=== PATIENT | male | born 1945 | race Caucasian/White ===

== ENCOUNTER → 2016-12-06 | Outpatient (CLI) | payer MEDICARE, OTHER ==
--- NOTE | 2016-12-06 08:11 | CT ---
EXAMINATION TYPE: CT brain wo con DATE OF EXAM: 12/06/2016 COMPARISON: NONE INDICATION: Dizziness DLP: 1141 mGycm, Automated exposure control for dose reduction was used. CONTRAST: None CT of the brain is performed utilizing 3 mm thick sections through the posterior fossa and 3 mm thick sections through the remaining calvarium. Study is performed within 24 hours of arrival to the hosp ital. No abnormal hyperdensity is present to suggest an acute intracranial hemorrhage. No mass lesion is evident. No acute infarcts are evident. Ventricles and sulci are appropriate for the patient age. There is a retention cyst within the right maxillary sinus. Small retention cyst or polyp is within t he left maxillary sinus. Small amount of mucosal thickening is through inferior right frontal and ant erior right ethmoid air cells. Remaining paranasal sinuses are clear. Mastoid air cells are normal. IMPRESSIONS: 1. No acute intracranial process.
--- NOTE | 2016-12-06 09:15 | US ---
EXAMINATION TYPE: US carotid duplex BILAT DATE OF EXAM: 12/06/2016 COMPARISON: NONE CLINICAL HISTORY: R55 syncope R42 dizziness. vertigo, no HTN EXAM MEASUREMENTS: RIGHT: Peak Systolic Velocity (PSV) cm/sec ----- Right CCA: 77.8 ----- Right ICA: 87.7 ----- Right ECA: 99.8 ICA/CCA ratio: 1.1 RIGHT: End Diastole cm/sec ----- Right CCA: 18.3 ----- Right ICA: 26.0 ----- Right ECA: 9.5 LEFT: Peak Systolic Velocity (PSV) cm/sec ----- Left CCA: 88.8 ----- Left ICA: 97.0 ----- Left ECA: 107.4 ICA/CCA ratio: 1.1 LEFT: End Diastole cm/sec ----- Left CCA: 21.6 ----- Left ICA: 29.7 ----- Left ECA: 11.5 VERTEBRALS (direction of flow): Right Vertebral: Antegrade Left Vertebral: Antegrade Rhythm: Normal No elevated velocities or significant stenosis. Plaque seen in bilateral posterior bulbs. Left CCA wa ll thickening. IMPRESSION: Minimal may scale plaquing of the bilateral carotid bulbs with no hemodynamically signi ficant stenosis within either carotid system.
--- NOTE | 2016-12-07 21:41 | ECHOF ---
Referral Reason: MEASUREMENTS -------- HEIGHT: 170.2 cm WEIGHT: 122.5 kg BP: 165/83 RVIDd: 2.8 cm (< 3.3) IVSd: 0.9 cm (0.6 - 1.1) LVIDd: 5.5 cm (3.9 - 5.3) LVPWd: 1.1 cm (0.6 - 1.1) IVSs: 1.2 cm LVIDs: 3.6 cm LVPWs: 1.5 cm LAESV Index (A-L): 17.84 ml/m Ao Diam: 3.6 cm (2.0 - 3.7) AV Cusp: 1.5 cm (1.5 - 2.6) LA Diam: 4.2 cm (2.7 - 3.8) MV E Vladimir: 0.74 m/s MV DecT: 387 ms MV A Vladimir: 0.89 m/s MV E/A Ratio: 0.83 RAP: 5.00 mmHg RVSP: 10.74 mmHg FINDINGS -------- Sinus rhythm. This was a technically difficult study with suboptimal views. The left ventricular size is normal. Left ventricular wall thickness is normal. Overall left ventricular systolic function is normal with, an EF between 55 - 60 %. The right ventricle is normal in size and function. Normal LA size by volume 22+/-6 ml/m2. The right atrium is normal in size. Aortic valve is trileaflet and is mildly thickened. There is no evidence of aortic regurgitation. There is no evidence of aortic stenosis. The mitral valve leaflets are mildly thickened. There is trace mitral regurgitation. Trace tricuspid regurgitation present. Right ventricular systolic pressure is normal at < 35 mmHg. There is no evidence of pulmonary hypertension. The pulmonic valve was not well visualized. The aortic root size is normal. Normal inferior vena cava with normal inspiratory collapse consistent with estimated right atrial pressure of 5 mmHg. The pericardium is normal. There is no pericardial effusion. CONCLUSIONS -------- 1. Sinus rhythm. 2. Right ventricular systolic pressure is normal at < 35 mmHg. 3. There is no evidence of pulmonary hypertension. 4. The pulmonic valve was not well visualized. 5. The aortic root size is normal. 6. There is no pericardial effusion. 7. This was a technically difficult study with suboptimal views. 8. The left ventricular size is normal. 9. Overall left ventricular systolic function is normal with, an EF between 55 - 60 %. 10. Normal LA size by volume 22+/-6 ml/m2. 11. Aortic valve is trileaflet and is mildly thickened. 12. The mitral valve leaflets are mildly thickened. 13. There is trace mitral regurgitation. 14. Trace tricuspid regurgitation present. BOAT GARNISHER: Jeffrey Guidry RDCS
== END | disposition home or self-care (01) ==
LOC: RADCTMAIN 07:43
PROVIDERS: ATTEND Family Medicine
DX: I05.8 Other rheumatic mitral valve diseases (principal); I35.8 Other nonrheumatic aortic valve disorders; R42 Dizziness and giddiness
CPT/HCPCS: 70450; 93306; 93880

== ENCOUNTER → 2017-09-13 | Day surgery (SDC) | payer MEDICARE, OTHER ==
[2017-09-10 11:24] VITALS: BMI 39.1
[~2017-09-13] MED LIST: LACTATED RINGERS 1,000 ML IV SCH; PROPOFOL 10 MG/ML 20 ML VIAL IV ONE; fentaNYL (PF) 50 MCG/ML 2 ML AMP ONE
[2017-09-13 07:09] VITALS: TEMP 98.6
--- NOTE | 2017-09-13 07:41 | P.GSHP ---
History of Present Illness H&P Date: 09/13/17 Chief Complaint: Colon cancer screening Patient here today for colonoscopy. Last colonoscopy 4 years ago. Personal history of polyps. 2 first-degree relatives with colon cancer. no bowel related complaints. Past Medical History Past Medical History: Hyperlipidemia, Osteoarthritis (OA) Additional Past Medical History / Comment(s): occ vertigo History of Any Multi-Drug Resistant Organisms: None Reported Past Surgical History: Cholecystectomy, Orthopedic Surgery Additional Past Surgical History / Comment(s): arthroscopy rt knee Past Anesthesia/Blood Transfusion Reactions: No Reported Reaction Smoking Status: Former smoker - Past Family History Sister(s) Family Medical History: Cancer Additional Family Medical History / Comment(s): colon Brother(s) Family Medical History: Cancer Medications and Allergies Home Medications Medication Instructions Recorded Confirmed Type Aspirin [Adult Low Dose Aspirin EC] 81 mg PO DAILY 09/10/17 09/13/17 History Atorvastatin [Lipitor] 20 mg PO HS 09/10/17 09/13/17 History Calcium(Dose Unknown) 2 tab PO DAILY 09/10/17 09/13/17 History Cholecalciferol [Vitamin D3] 1,000 unit PO DAILY 09/10/17 09/13/17 History Citracel Tab 2 tab PO BID 09/10/17 09/13/17 History Loratadine-Pseudoeph 10-240 mg 1 each PO DAILY 09/10/17 09/13/17 History [Claritin-D 24 Hr] Multivitamins, Thera [Multivitamin 1 tab PO DAILY 09/10/17 09/13/17 History (formulary)] Stool Softner 1 tab PO DAILY PRN 09/10/17 09/13/17 History Vits A,C,E/Lutein/Minerals 1 each PO BID 09/10/17 09/13/17 History [Ocuvite with Lutein Tablet] Allergies Allergy/AdvReac Type Severity Reaction Status Date / Time No Known Allergies Allergy Verified 09/10/17 11:14 Surgical - Exam Vital Signs Temp Pulse Resp BP Pulse Ox 98.6 F 96 20 182/99 96 09/13/17 07:07 09/13/17 07:07 09/13/17 07:07 09/13/17 07:07 09/13/17 07:07 Physical exam: General: Well-developed, well-nourished HEENT: Normocephalic, sclerae nonicteric Abdomen: Nontender, nondistended Extremities: No edema Neuro: Alert and oriented Assessment and Plan (1) Colon cancer screening Narrative/Plan: Will proceed with colonoscopy at this time Current Visit: Yes Status: Acute Code(s): Z12.11 - ENCOUNTER FOR SCREENING FOR MALIGNANT NEOPLASM OF COLON SNOMED Code(s): 728297882
--- NOTE | 2017-09-13 07:59 | P.PCN ---
Date of Procedure: 09/13/17 Procedure(s) Performed: PREOPERATIVE DIAGNOSIS: Screening POSTOPERATIVE DIAGNOSIS: Sigmoid colon polyp, mild diverticulosis PROCEDURE: Colonoscopy with snare polypectomy ANESTHESIA: MAC SURGEON: Max Aceves M.D. SPECIMENS: Sigmoid polyp ENDOSCOPIC PROCEDURE: The patient was placed on the endoscopy table in the left decubitus position. The Olympus colonoscope was inserted into the anus and passed under direct visualization to the base of the cecum. The appendiceal orifice was visualized. From that point the scope was slowly withdrawn inspecting all surfaces carefully. There were no neoplastic inflammatory or polypoid lesions throughout the cecum, ascending, transverse, and descending colon. In the sigmoid a small polyp was removed using the snare with cautery technique. There was mild diverticulosis in the left colon. Digital rectal examination was normal. The patient was taken to the recovery room in stable condition per anesthesia guidelines. RECOMMENDATIONS: Await biopsy results. Recommend follow-up colonoscopy 5 years.
[2017-09-13 08:09] VITALS: RESP 18
[2017-09-13 08:25] VITALS: BP 148/82; PULSE 72
== END | disposition home or self-care (01) ==
LOC: ORWHC2ENDO 06:41
PROVIDERS: ATTEND Surgery
DX: Z12.11 Encounter for screening for malignant neoplasm of colon (principal); D12.5 Benign neoplasm of sigmoid colon; K57.30 Diverticulosis of large intestine without perforation or abscess without bleeding; M19.90 Unspecified osteoarthritis, unspecified site; E78.5 Hyperlipidemia, unspecified; Z86.010 Personal history of colon polyps; Z80.0 Family history of malignant neoplasm of digestive organs; Z79.82 Long term (current) use of aspirin; Z79.899 Other long term (current) drug therapy; Z87.891 Personal history of nicotine dependence
CPT/HCPCS: 88305; 45385; J3010; J2704

== ENCOUNTER 2023-11-05 02:19 | Emergency (ER) | payer MEDICARE, OTHER ==
[2023-11-05] MEDS ORDERED: SODIUM CHLORIDE 0.9% 1,000 ML BAG ONE (04:00)
== END 2023-11-05 05:50 | disposition home or self-care (01) ==
LOC: EC 02:19
CPT/HCPCS: 51798; 96360; 99283

== ENCOUNTER 2023-11-13 10:13 | Emergency (ER) | payer MEDICARE, OTHER ==
[2023-11-13 10:20] VITALS: TEMP 98.3
--- NOTE | 2023-11-13 11:15 | ED ---
Dizziness HPI - General Chief Complaint: Dizziness Stated Complaint: high blood pressure Time Seen by Provider: 11/13/23 11:13 Source: patient, RN notes reviewed Mode of arrival: ambulatory Limitations: no limitations - History of Present Illness Initial Comments: 77-year-old man presented to ER with a chief complaint of syncope. Patient reports he was seen here last week and diagnosed with urinary retention. He followed up with urology and was started on Flomax due to BPH. He has been taking Flomax at night in addition to losartan 50 mg in the morning for hypertension. Patient states since starting Flomax he has noticed to be dizzy with positional changes and having low blood pressures. He is followed up with PCP. He states this morning while brushing his teeth he started to feel dizzy and had a syncopal episode. He does believe he hit his head on the door handle. No blood thinner use. He is reporting pain to his left hand. He denies any other injuries or complaints. - Related Data Home Medications Medication Instructions Recorded Confirmed Atorvastatin [Lipitor] 20 mg PO HS 09/10/17 11/13/23 ALPRAZolam [Xanax] 0.5 mg PO HS 11/13/23 11/13/23 Calcium Carbonate [Calcium] 600 mg PO DAILY 11/13/23 11/13/23 Cholecalciferol (Vitamin D3) 75 mcg PO DAILY 11/13/23 11/13/23 [Vitamin D3 (3000 Iu)] Losartan [Cozaar] 50 mg PO DAILY 11/13/23 11/13/23 Omeprazole [PriLOSEC] 20 mg PO DAILY 11/13/23 11/13/23 Tamsulosin [Flomax] 0.4 mg PO HS 11/13/23 11/13/23 Vit C/E/Zn/Coppr/Lutein/Zeaxan 1 cap PO DAILY 11/13/23 11/13/23 [Preservision Areds 2 Softgel] Allergies Allergy/AdvReac Type Severity Reaction Status Date / Time No Known Allergies Allergy Verified 11/13/23 13:40 Review of Systems ROS Statement: Those systems with pertinent positive or pertinent negative responses have been documented in the HPI. ROS Other: All systems not noted in ROS Statement are negative. Past Medical History Past Medical History: Hyperlipidemia, Hypertension, Osteoarthritis (OA), Prostate Disorder Additional Past Medical History / Comment(s): occ vertigo History of Any Multi-Drug Resistant Organisms: None Reported Past Surgical History: Cholecystectomy, Orthopedic Surgery Additional Past Surgical History / Comment(s): arthroscopy rt knee Past Anesthesia/Blood Transfusion Reactions: No Reported Reaction Past Psychological History: No Psychological Hx Reported Smoking Status: Former smoker Past Alcohol Use History: Rare Past Drug Use History: None Reported - Past Family History Sister(s) Family Medical History: Cancer Additional Family Medical History / Comment(s): colon Brother(s) Family Medical History: Cancer General Exam Limitations: no limitations General appearance: alert, in no apparent distress Head exam: Present: atraumatic, normocephalic, normal inspection Eye exam: Present: normal appearance, PERRL, EOMI. Absent: scleral icterus, conjunctival injection, periorbital swelling Pupils: Present: normal accommodation (3mm bilaterally) ENT exam: Present: normal exam, normal oropharynx, mucous membranes moist Respiratory exam: Present: normal lung sounds bilaterally. Absent: respiratory distress, wheezes, rales, rhonchi, stridor Cardiovascular Exam: Present: regular rate, normal rhythm, normal heart sounds. Absent: systolic murmur, diastolic murmur, rubs, gallop, clicks GI/Abdominal exam: Present: soft, normal bowel sounds. Absent: distended, tenderness, guarding, rebound, rigid Extremities exam: Present: other (contusion and edema to left 4-5th digits. abrsion to 4th MCP joint. 2+ left radial pulse. Full active range of motion.) Neurological exam: Present: alert, oriented X3, CN II-XII intact Skin exam: Present: warm, dry, intact, normal color. Absent: rash Course Vital Signs 11/13/23 11/13/23 11/13/23 10:17 12:25 14:00 Temperature 98.3 F Pulse Rate 79 72 Pulse Rate [ 71 Pulse Oximetery ] Respiratory 20 18 18 Rate Blood Pressure 90/55 159/76 Blood Pressure [Right Arm Sitting] Blood Pressure [Right Arm Standing] Blood Pressure 180/84 [Right Arm Supine] O2 Sat by Pulse 97 99 99 Oximetry 11/13/23 11/13/23 11/13/23 14:05 14:10 15:26 Temperature Pulse Rate 73 Pulse Rate [ 72 77 Pulse Oximetery ] Respiratory 18 18 16 Rate Blood Pressure Blood Pressure 148/84 [Right Arm Sitting] Blood Pressure 155/81 [Right Arm Standing] Blood Pressure [Right Arm Supine] O2 Sat by Pulse 99 99 99 Oximetry Medical Decision Making - Medical Decision Making Was pt. sent in by a medical professional or institution (ABIMBOLA Lee, SKILLS AUDITOR, urgent care, hospital, or residential...) When possible be specific @ -No Did you speak to anyone other than the patient for history (EMS, parent, family, police, friend...)? What history was obtained from this source @ -No Did you review nursing and triage notes (agree or disagree)? Why? @ -I reviewed and agree with nursing and triage notes Were old charts reviewed (outside hosp., previous admission, EMS record, old EKG, old radiological studies, urgent care reports/EKG's, residential records)? Report findings @ -No old charts were reviewed Differential Diagnosis (chest pain, altered mental status, abdominal pain women, abdominal pain men, vaginal bleeding, weakness, fever, dyspnea, syncope, headache, dizziness, GI bleed, back pain, seizure, CVA, palpatations, mental health, musculoskeletal)? @ -Differential Syncope:Valvular disease, hypertrophic cardiomyopathy, pulmonary embolism, tamponade, tachycardia, bradycardia, CA, hypovolemia, hemorrhage, dissection, anemia, intracranial hemorrhage, seizure, hypoglycemia, carbon monoxide poisoning, this is not meant to be an all-inclusive list. EKG interpreted by me (3pts min.). @ -As above X-rays interpreted by me (1pt min.). @ -Left hand x-ray interpreted by me negative for acute osseous process. Chest x-ray negative for acute cardiopulmonary process. CT interpreted by me (1pt min.). @ -CT brain negative for acute intracranial process. U/S interpreted by me (1pt. min.). @ -None done What testing was considered but not performed or refused? (CT, X-rays, U/S, labs)? Why? @ -None What meds were considered but not given or refused? Why? @ -None Did you discuss the management of the patient with other professionals (professionals i.e. ABIMBOLA Lee, SKILLS AUDITOR, lab, RT, psych nurse, dialysis social worker, waste water operator, teacher, security officer, supervisor case loading)? Give summary @ -No Was smoking cessation discussed for >3mins.? @ -No Was critical care preformed (if so, how long)? @ -No Were there social determinants of health that impacted care today? How? (Homelessness, low income, unemployed, alcoholism, drug addiction, transportation, low edu. Level, literacy, decrease access to med. care, group home, rehab)? @ -No Was there de-escalation of care discussed even if they declined (Discuss DNR or withdrawal of care, Hospice)? DNR status @ -No What co-morbidities impacted this encounter? (DM, HTN, Smoking, COPD, CAD, Cancer, CVA, ARF, Chemo, Hep., AIDS, mental health diagnosis, sleep apnea, morbid obesity)? @ -None Was patient admitted / discharged? Hospital course, mention meds given and route, prescriptions, significant lab abnormalities, going to OR and other pertinent info. @ -Discharged. 77-year-old male presented to the ER with a chief complaint of syncope. History and physical exam completed. Vitals within normal limits. Patient in no signs of acute distress and nontoxic-appearing. No acute neurological findings on exam. Exam remarkable for ecchymosis and edema to left fourth and fifth digits. Bilateral upper and lower extremities neurovascular intact. Imaging obtained negative for acute process. Laboratory studies unremarkable. Troponin less than 0.012. Urine analysis without evidence of infection. Positive orthostatics with 30mmHg drop in systolic upon standing. P atient given IV fluids for symptom control in the ER. On reevaluation, patient eager for discharge. Admission was offered for further evaluation of orthostatic hypotension, patient refused. Patient verbally expressed understanding of risks. Advised patient to hold Flomax until follow-up with PCP as medication believed to be contributing to orthostatic hypotension. Return parameters discussed. Patient discharged in stable condition. Patient verbally expressed understanding agree with care plan. Case discussed with ED attending, . Undiagnosed new problem with uncertain prognosis? @ -No Drug Therapy requiring intensive monitoring for toxicity (Heparin, Nitro, In sulin, Cardizem)? @ -No Were any procedures done? @ -No Diagnosis/symptom? @ -Orthostatic hypotension/contusion Acute, or Chronic, or Acute on Chronic? @ -Acute Uncomplicated (without systemic symptoms) or Complicated (systemic symptoms)? @ -Complicated Side effects of treatment? @ -No Exacerbation, Progression, or Severe Exacerbation? @ -No Poses a threat to life or bodily function? How? (Chest pain, USA, CA, pneumonia, PE, COPD, DKA, ARF, appy, cholecystitis, CVA, Diverticulitis, Homicidal, Suicidal, threat to staff... and all critical care pts) @ -Possibly, orthostatic hypotension can lead to falls which can lead to other injuries. - Lab Data Result diagrams: 11/13/23 11:15 11/13/23 12:45 Lab Results 11/13/23 11/13/23 11/13/23 Range/Units 11:15 11:15 11:15 WBC 7.6 (3.8-10.6) k/uL RBC 4.61 (4.30-5.90) m/uL Hgb 14.7 (13.0-17.5) gm/dL Hct 44.2 (39.0-53.0) % MCV 95.9 (80.0-100.0) fL MCH 31.8 (25.0-35.0) pg MCHC 33.2 (31.0-37.0) g/dL RDW 13.4 (11.5-15.5) % Plt Count 104 L (150-450) k/uL MPV 12.2 Neutrophils % 81 % Lymphocytes % 11 % Monocytes % 5 % Eosinophils % 2 % Basophils % 0 % Neutrophils # 6.1 (1.3-7.7) k/uL Lymphocytes # 0.8 L (1.0-4.8) k/uL Monocytes # 0.4 (0-1.0) k/uL Eosinophils # 0.2 (0-0.7) k/uL Basophils # 0.0 (0-0.2) k/uL Manual Slide Review Performed RBC Morphology Normal PT (10.0-12.5) sec INR (<1.2) APTT (22.0-30.0) sec Sodium (137-145) mmol/L Potassium (3.5-5.1) mmol/L Chloride (98-107) mmol/L Carbon Dioxide (22-30) mmol/L Anion Gap mmol/L BUN (9-20) mg/dL Creatinine (0.66-1.25) mg/dL Est GFR (CKD-EPI)AfAm (>60 ml/min/1.73 sqM) Est GFR (CKD-EPI)NonAf (>60 ml/min/1.73 sqM) Glucose (74-99) mg/dL Calcium (8.4-10.2) mg/dL Total Bilirubin (0.2-1.3) mg/dL AST (17-59) U/L ALT (4-49) U/L Alkaline Phosphatase (38-126) U/L Troponin I <0.012 (0.000-0.034) ng/mL Total Protein (6.3-8.2) g/dL Albumin (3.5-5.0) g/dL Urine Color Colorless Urine Appearance Clear (Clear) Urine pH 6.5 (5.0-8.0) Ur Specific [place] 1.011 (1.001-1.035) Urine Protein Negative (Negative) Urine Glucose (UA) Negative (Negative) Urine Ketones Negative (Negative) Urine Blood Negative (Negative) Urine Nitrite Negative (Negative) Urine Bilirubin Negative (Negative) Urine Urobilinogen <2.0 (<2.0) mg/dL Ur Leukocyte Esterase Negative (Negative) 11/13/23 11/13/23 Range/Units 12:45 12:45 WBC (3.8-10.6) k/uL RBC (4.30-5.90) m/uL Hgb (13.0-17.5) gm/dL Hct (39.0-53.0) % MCV (80.0-100.0) fL MCH (25.0-35.0) pg MCHC (31.0-37.0) g/dL RDW (11.5-15.5) % Plt Count (150-450) k/uL MPV Neutrophils % % Lymphocytes % % Monocytes % % Eosinophils % % Basophils % % Neutrophils # (1.3-7.7) k/uL Lymphocytes # (1.0-4.8) k/uL Monocytes # (0-1.0) k/uL Eosinophils # (0-0.7) k/uL Basophils # (0-0.2) k/uL Manual Slide Review RBC Morphology PT 11.1 (10.0-12.5) sec INR 1.0 (<1.2) APTT 25.6 (22.0-30.0) sec Sodium 136 L (137-145) mmol/L Potassium 4.8 (3.5-5.1) mmol/L Chloride 105 (98-107) mmol/L Carbon Dioxide 29 (22-30) mmol/L Anion Gap 2 mmol/L BUN 14 (9-20) mg/dL Creatinine 0.79 (0.66-1.25) mg/dL Est GFR (CKD-EPI)AfAm >90 (>60 ml/min/1.73 sqM) Est GFR (CKD-EPI)NonAf 86 (>60 ml/min/1.73 sqM) Glucose 93 (74-99) mg/dL Calcium 8.8 (8.4-10.2) mg/dL Total Bilirubin 0.7 (0.2-1.3) mg/dL AST 25 (17-59) U/L ALT 21 (4-49) U/L Alkaline Phosphatase 74 (38-126) U/L Troponin I (0.000-0.034) ng/mL Total Protein 5.7 L (6.3-8.2) g/dL Albumin 3.5 (3.5-5.0) g/dL Urine Color Urine Appearance (Clear) Urine pH (5.0-8.0) Ur Specific [place] (1.001-1.035) Urine Protein (Negative) Urine Glucose (UA) (Negative) Urine Ketones (Negative) Urine Blood (Negative) Urine Nitrite (Negative) Urine Bilirubin (Negative) Urine Urobilinogen (<2.0) mg/dL Ur Leukocyte Esterase (Negative) - EKG Data -: EKG Interpreted by Me EKG Comments: EKG taken at 11: 23 showing a sinus rhythm with sinus arrhythmia. No acute ST segment or T wave abnormalities. Ventricular rate 71, TN interval 163, QRS duration 98, QTc/QTc 377/400. - Radiology Data Radiology results: report reviewed, image reviewed Disposition Clinical Impression: Orthostatic hypotension, Contusion Disposition: HOME SELF-CARE Condition: Stable Instructions (If sedation given, give patient instructions): Dizziness (ED), Syncope in Older Adults (ED) Additional Instructions: Do not take Flomax until following up with PCP. Continue take losartan as prescribed. Your primary care physician may insider altering dose of losartan. Return to the ER for any new or worsening concerns. Is patient prescribed a controlled substance at d/c from ED?: No Referrals: Agus Zambrano MD [Primary Care Provider] - 1-2 days Time of Disposition: 15:19
[2023-11-13 11:37] LABS: Basophils % (A) 0 %; Eosinophils # (A) 0.2 k/uL (0-0.7); Eosinophils % (A) 2 %; HCT 44.2 % (39.0-53.0); HGB 14.7 gm/dL (13.0-17.5); Lymphocytes # (A) 0.8 k/uL (1.0-4.8); Lymphocytes % (A) 11 %; MCH 31.8 pg (25.0-35.0); MCHC 33.2 g/dL (31.0-37.0); MCV 95.9 fL (80.0-100.0); Mean Platelet Volume 12.2; Monocytes # (A) 0.4 k/uL (0-1.0); Monocytes % (A) 5 %; Neutrophils # (A) 6.1 k/uL (1.3-7.7); Neutrophils % (A) 81 %; RBC 4.61 m/uL (4.30-5.90); RDW 13.4 % (11.5-15.5); WBC 7.6 k/uL (3.8-10.6)
[2023-11-13] MEDS: SODIUM CHLORIDE 0.9% 1,000 ML IV STA (11:52)
--- NOTE | 2023-11-13 12:30 | CT ---
EXAMINATION TYPE: CT brain wo con DATE OF EXAM: 11/13/2023 COMPARISON: None HISTORY: syncope w head injury no thinners CT DLP: 1154.4 mGycm Automated exposure control for dose reduction was used. FINDINGS: Moderate degenerative change. Hypoattenuation the white matter are nonspecific but most typical remot e microvascular ischemia. Calvarium intact. Craniocervical junction maintained. Mild chronic sinusiti s. IMPRESSION: DEGENERATIVE AND REMOTE ISCHEMIC CHANGES.
--- NOTE | 2023-11-13 13:12 | XR ---
EXAMINATION TYPE: XR chest 2V DATE OF EXAM: 11/13/2023 COMPARISON: 07/15/2022 HISTORY: 77-year-old male with dizziness TECHNIQUE: AP and lateral views FINDINGS: Heart mildly enlarged. Perihilar and interstitial densities without rajeev consolidation or pleural ef fusion. IMPRESSION: Mild cardiomegaly and interstitial density; correlate for possible mild CHF with pulmonary vascular c ongestion.
--- NOTE | 2023-11-13 13:13 | XR ---
EXAMINATION TYPE: XR hand complete 3 views LT DATE OF EXAM: 11/13/2023 Comparison: None Clinical History: 77-year-old male syncope today, pain after injury Findings: Osteopenia. No acute fracture, subluxation, or dislocation seen. Impression: No acute osseous abnormality seen.
[2023-11-13 13:17] LABS: Partial Thromboplastin Time 25.6 sec (22.0-30.0); Prothrombin Time 11.1 sec (10.0-12.5)
[2023-11-13 13:25] LABS: ALT 21 U/L (4-49); AST 25 U/L (17-59); African American GFR (CKD) >90 (>60 ml/min/1.73 sqM); Albumin 3.5 g/dL (3.5-5.0); Alkaline Phosphatase 74 U/L (38-126); Anion Gap 2 mmol/L; Blood Urea Nitrogen 14 mg/dL (9-20); Calcium 8.8 mg/dL (8.4-10.2); Carbon Dioxide 29 mmol/L (22-30); Chloride 105 mmol/L (98-107); Glucose 93 mg/dL (74-99); Non-African American GFR(CKD) 86 (>60 ml/min/1.73 sqM); Potassium 4.8 mmol/L (3.5-5.1); Sodium 136 mmol/L (137-145); Total Bilirubin 0.7 mg/dL (0.2-1.3); Total Protein 5.7 g/dL (6.3-8.2)
[2023-11-13 13:31] LABS: RBC Morphology Normal
[2023-11-13 13:33] LABS: Platelet Count 104 k/uL (150-450)
[2023-11-13 14:42] VITALS: BP 155/81
[2023-11-13 14:42] LABS: Appearance,Urine Clear (Clear); Bilirubin,Urine Negative (Negative); Blood,Urine Negative (Negative); Color,Urine Colorless; Glucose,Urine (UA) Negative (Negative); Ketones,Urine Negative (Negative); Leukocyte Esterase,Urine Negative (Negative); Nitrite,Urine Negative (Negative); PH, Urine 6.5 (5.0-8.0); Protein,Urine Negative (Negative); Specific Gravity,Urine 1.011 (1.001-1.035); Urobilinogen,Urine <2.0 mg/dL (<2.0)
[2023-11-13 15:28] VITALS: PULSE 73; RESP 16
== END 2023-11-13 15:44 | disposition home or self-care (01) ==
LOC: EC 10:13
CPT/HCPCS: 36415; 70450; 71046; 80053; 81003; 84484; 85025; 85610; 85730; 93005; 96360; 96361; 99284